=== PATIENT | female | born 1955 | race Caucasian/White ===

== ENCOUNTER 2020-09-15 08:22 | Outpatient (CLI) | payer MEDICARE, SELFPAY ==
--- NOTE | ~2020-09-15 | XR_ITS ---
EXAMINATION: XR chest 2V EXAM DATE: 09/15/2020 08:36 INDICATION: cough . TECHNIQUE: Frontal and lateral projections of the chest obtained and reviewed. There is no prior golden dy for comparison. FINDINGS: The lungs are clear. There are no pleural effusions. The cardiomediastinal silhouette is within normal limits. There is no pneumothorax suspected. Patient has diffuse idiopathic skeletal h yperostosis (DISH). IMPRESSION: No acute cardiopulmonary findings. Reviewed, dictated and finalized at location A. TRIC DOLLY OPERATOR
== END 2020-09-15 08:23 ==
PROVIDERS: PCP Family Medicine; Visit Provider Physician Assistant
DX: R05 Cough (principal)
CPT/HCPCS: 71046

== ENCOUNTER → 2020-11-23 10:45 | Outpatient (CLI) | payer MEDICARE, SELFPAY ==
--- NOTE | ~2020-11-23 | MM_ITS ---
EXAMINATION: MM screening [facility] BI w faby HISTORY: Screening TECHNIQUE: Craniocaudal and mediolateral oblique 3-D tomosynthesis images were obtained and synthetic 2-D images were generated. CAD analysis was submitted and interpreted. COMPARISON: No prior mammogram is available for comparison at this institution. BREAST PARENCHYMAL COMPOSITION: There are scattered areas of fibroglandular density. FINDINGS: There is no evidence of suspicious mass, calcification, or architectural distortion to sugg est malignancy in either breast. There has been no suspicious interval change. IMPRESSION: 1. No mammographic evidence of malignancy. 2. Recommend routine screening mammography in one year. BI-RADS Category 1: Negative Reviewed, dictated and finalized at location A. LEAF LAYER
--- NOTE | ~2020-11-23 | DEXA_ITS ---
Bone Density Report Name: Elvira Powers Age: 65 Sex: Female Ethnicity: White Date of : 1955 Indication: postmenopausal; screening for osteoporosis; Referring Provider: KAIDEN RAMIREZ Study: Bone densitometry was performed. Exam Date: November 23, 2020 Accession number: [id number] Bone Density: Region BMD T-score Z-score Classification AP Spine (L1-L4) 0.977 -0.6 1.3 Normal Femoral Neck (Left) 0.625 -2.0 -0.4 Osteopenia Total Hip (Left) 0.863 -0.7 0.7 Normal Femoral Neck (Right) 0.599 -2.3 -0.6 Osteopenia Total Hip (Right) 0.788 -1.3 0.1 Osteopenia Total Hip Mean 0.826 -1.0 0.4 Normal World Health Organization criteria for BMD impression classify patients as: Normal (T-score at or above -1.0), Osteopenia (T-score between -1.0 and -2.5), or Osteoporosis (T-score at or below -2.5). 10-year Fracture Risk(1): Major Osteoporotic Fracture 12% Hip Fracture 2.3% Reported Risk Factors: [place] (), Neck BMD=0.599, BMI=30.6 (1) FRAX(R) Version 3.08. Fracture probability calculated for an untreated patient. Fracture probability may be lower if the patient has received treatment. Clinical Information Provided by Patient: Has used the following medications: Vitamin D, Calcium, MTV Patient maximum height was 64.5 Menopause Age: 46 Onset of menses at age 11 Number of children 1 Impression: The patient has low bone mass, based on the Right Femoral Neck T-score. The patient has an estimated ten-year risk of hip fracture of 2.3% and an estimated ten-year risk of major fracture of 12%, based on the WHO FRAX algorithm. Discussion: BONE DENSITY IS LOW AT ONE OR MORE SKELETAL SITES. This patient's lowest T-score is low at one or more skeletal sites. It meets the World Health Organization's (WHO) criteria for ?low bone mass? (T-score between -1.0 and -2.5). The patient's 10-year risk of fracture as calculated by FRAX is less than the threshold where pharmacological therapy is recommended by the National Osteoporosis Foundation (NOF). However, all treatment decisions require clinical judgment and consideration of individual patient factors, including patient preferences, comorbidities, previous drug use, risk factors not captured in the FRAX model (e.g., frailty, falls, vitamin D deficiency, increased bone turnover, interval significant decline in bone density) and possible under or overestimation of fracture risk by FRAX. The patient should follow a healthful lifestyle (good nutrition with adequate calcium and vitamin D, and appropriate weight-bearing exercise). Follow-Up: Consider repeating this study in 2 to 3 years to reassess this patient's status, or sooner if there is some new clinical indication. Reported by: ROVERTO on 11/23/2020 11:33:00 AM.
== END ==
PROVIDERS: PCP Family Medicine; Visit Provider Family Medicine
DX: Z12.31 Encounter for screening mammogram for malignant neoplasm of breast (principal); Z78.0 Asymptomatic menopausal state; M85.852 Other specified disorders of bone density and structure, left thigh; M85.851 Other specified disorders of bone density and structure, right thigh
CPT/HCPCS: 77063; 77067; 77080

== ENCOUNTER 2020-12-24 08:39 | Outpatient (CLI) | payer MEDICARE, SELFPAY ==
--- NOTE | 2020-12-24 13:20 | WPDPFTINT ---
PFT Interpretation This is a pulmonary function test with pre and post-bronchodilator spirometry, plethysmography and diffusing capacity. The test was performed and results interpreted in accordance with the 2019 and 2005 ATS/ERS Task Force guidelines respectively using the Mario/Poltyler reference equations. Findings: Spirometry: the contour of the inspiratory expiratory flow tracing are normal. The pre bronchodilator FVC is 3.44 L, 119% predicted. The pre bronchodilator FEV1 is 2.64, 126% predicted. The FEV1: FVC ratio 77%. The post bronchodilator FVC is 3.48 L, representing 1% increase. The post bronchodilator FEV1 is 2.53 L, representing a 4% decrease. Plethysmography: The total lung capacity is 6.74 L, 139% predicted. Functional residual capacity is 3.08 L, 122% predicted. The residual volume is 3.05 L, 160% predicted. Diffusing capacity: The absolute diffusion capacity is 17.1, 79% predicted. The diffusing capacity corrected for alveolar volume is 3.86, 105% predicted. Impression: The spirometry is normal without evidence of an obstructive abnormality. There is no significant improvement after inhaling a single dose of albuterol. The Total lung capacity, functional residual capacity and residual volume are all increased. This is a nonspecific lung volume pattern. The diffusing capacity is normal. There are no prior studies for comparison
== END 2020-12-24 08:40 | disposition home or self-care (01) ==
PROVIDERS: PCP Family Medicine; Visit Provider Family Medicine
DX: R05 Cough (principal)
CPT/HCPCS: 94060; 94726; 94729

== ENCOUNTER 2022-01-28 09:46 | Outpatient (CLI) | payer MEDICARE, SELFPAY ==
--- NOTE | ~2022-01-28 | XR_ITS ---
XR chest 2V DATE: 01/28/2022 10:02 INDICATION: Cough TECHNIQUE: PA and lateral views COMPARISON: 09/15/2020 2 view chest FINDINGS: Normal heart size. There is suggestion of a coronary artery stent. Aortic arch calcificatio n. No hilar or mediastinal enlargement. No pulmonary infiltrate or consolidation, pleural effusion or pulmonary vascular congestion or pneumo thorax. Diffuse osteopenia There is mild levoscoliosis and prominent degenerative spurring of the thoracic spine. IMPRESSION: Probable coronary artery stents Aortic calcification No active cardiopulmonary disease Reviewed, dictated and finalized at location A.
== END 2022-01-28 09:47 | disposition home or self-care (01) ==
PROVIDERS: PCP Family Medicine; Referring Provider Internal Medicine Cardiovascular Disease; Visit Provider Family Medicine
DX: R05.9 Cough, unspecified (principal); I70.0 Atherosclerosis of aorta
CPT/HCPCS: 71046

== ENCOUNTER 2023-06-19 14:40 | Outpatient (CLI) | payer MEDICARE, SELFPAY ==
--- NOTE | ~2023-06-19 | XR_ITS ---
EXAMINATION:XR_[id number]_CR DATE: 06/19/2023 15:05 INDICATION: Neck pain TECHNIQUE: AP, lateral, and odontoid views of the cervical spine are provided. COMPARISON: None FINDINGS: There are 2 mm of anterolisthesis of C4 on C5. The odontoid process is intact. No fracture is identified. There is severe loss of intervertebral disc space height at C5-6 and C6-7. The vertebr al body heights are maintained. Small degenerative osteophytes project from the anterior endplates of multiple vertebral bodies. There is multilevel severe facet and uncovertebral joint osteoarthritis. Prevertebral soft tissues are normal. IMPRESSION: 1. Severe cervical spondylosis without acute findings. Reviewed, dictated and finalized at location A.
== END 2023-06-19 14:41 | disposition home or self-care (01) ==
PROVIDERS: PCP Family Medicine; Visit Provider Physician Assistant
DX: M47.892 Other spondylosis, cervical region (principal)
CPT/HCPCS: 72040

== ENCOUNTER → 2023-06-27 07:05 | Outpatient (CLI) | payer MEDICARE, SELFPAY ==
--- NOTE | ~2023-06-27 | MM_ITS ---
EXAMINATION: MM screening [facility] BI w faby HISTORY: Screening mammogram TECHNIQUE: Craniocaudal and mediolateral oblique 3-D tomosynthesis images were obtained and synthetic 2-D images were generated. CAD analysis was submitted and interpreted. COMPARISON: 11/23/2020 BREAST PARENCHYMAL COMPOSITION: There are scattered areas of fibroglandular density. FINDINGS: No suspicious mass, calcification, or architectural distortion are identified in either ritchie ast to suggest malignancy. There has been no suspicious interval change. IMPRESSION: 1. No mammographic evidence of malignancy. 2. Recommend routine screening mammography in one year. BI-RADS Category 1: Negative Reviewed, dictated and finalized at location A.
== END ==
PROVIDERS: PCP Family Medicine; Visit Provider Family Medicine
DX: Z12.31 Encounter for screening mammogram for malignant neoplasm of breast (principal)
CPT/HCPCS: 77063; 77067

== ENCOUNTER 2023-09-11 10:33 | Outpatient (CLI) | payer MEDICARE, SELFPAY ==
--- NOTE | ~2023-09-11 | XR_ITS ---
Lumbosacral Spine: AP and lateral views Clinical History: Pain Findings: The normal lordotic curve is maintained. No fracture seen. 3 mm anterolisthesis of L4 over L5 present. There is moderate facet arthropathy, worst at L4-L5 and L5-S1. The sacroiliac joints are normally outlined. Impression: Joint degenerative change, as above. 3 mm anterolisthesis of L4 over L5. Reviewed, dictated and finalized at location . P WINDER Impression: Joint degenerative change, as above. 3 mm anterolisthesis of L4 over L5.
== END 2023-09-11 10:34 | disposition home or self-care (01) ==
PROVIDERS: PCP Family Medicine; Visit Provider Family Medicine
DX: M53.86 Other specified dorsopathies, lumbar region (principal); M51.36 Other intervertebral disc degeneration, lumbar region
CPT/HCPCS: 72100

== ENCOUNTER 2024-02-01 10:26 | Outpatient (CLI) | payer MEDICARE, SELFPAY ==
--- NOTE | ~2024-02-01 | CT_ITS ---
CT Scan of the Chest without Contrast: Clinical Indication: Lung cancer screening, nicotine dependence Technique: Contiguous sections were acquired throughout the chest without intravenous contrast. Dose reduction technique was used on this scan by utilizing automated exposure control and iterative recon struction technique. The dose-length product (DLP) was 184.61 mGy-cm. Findings: There is no evidence of any significant mediastinal, hilar or axillary lymphadenopathy. Extensive cor onary artery calcifications are present. There is no evidence of pleural or pericardial effusion. The lungs are clear. No pulmonary nodules or infiltrates are noted. Images through the upper abdomen reveal no abnormalities. Impression: Lung RADS 1: Negative. 12 month follow-up screening CT advised. Reviewed, dictated and finalized at location . Impression: Lung RADS 1: Negative. 12 month follow-up screening CT advised.
== END 2024-02-01 10:27 | disposition home or self-care (01) ==
PROVIDERS: PCP Family Medicine; Visit Provider Family Medicine
DX: Z12.2 Encounter for screening for malignant neoplasm of respiratory organs (principal); F17.210 Nicotine dependence, cigarettes, uncomplicated
CPT/HCPCS: 71271

== ENCOUNTER 2024-07-02 07:15 | Outpatient (CLI) | payer MEDICARE, SELFPAY ==
--- NOTE | ~2024-07-02 | MM_ITS ---
EXAMINATION: MM screening [facility] BI w faby HISTORY: Screening TECHNIQUE: Craniocaudal and mediolateral oblique 3-D tomosynthesis images were obtained and synthetic 2-D images were generated. CAD analysis was submitted and interpreted. COMPARISON: Comparison to multiple prior studies sequentially, with oldest reviewed study dated 11/23. BREAST PARENCHYMAL COMPOSITION: There are scattered areas of fibroglandular density. FINDINGS: There is no evidence of suspicious mass, calcification, or architectural distortion to sugg est malignancy in either breast. There has been no suspicious interval change. IMPRESSION: 1. No mammographic evidence of malignancy. 2. Recommend routine screening mammography in one year. BI-RADS Category 1: Negative Reviewed, dictated and finalized at location B.
== END 2024-07-02 07:16 | disposition home or self-care (01) ==
PROVIDERS: PCP Family Medicine; Visit Provider Family Medicine
DX: Z12.31 Encounter for screening mammogram for malignant neoplasm of breast (principal)
CPT/HCPCS: 77063; 77067

== ENCOUNTER 2025-02-18 03:32 | Day surgery (SDC) | payer MEDICARE, SELFPAY ==
[2025-02-11 13:59] VITALS: BMI 30.3
--- NOTE | 2025-02-11 14:09 | PC.NURSE ---
Spoke with patient regarding medication Plavix. Patient verbalizes understanding that the last dose is to be taken on 02/11/2025 and the Endoscopist will instruct them when to restart after the procedure. Dr. Tillman is aware that her last dose will be today.
--- OUTSIDE RECORDS SUMMARY | 2025-02-18 03:35 | XMS_ITS | Clinical Summary ---
Author Organization [facility] [place] [address] [place] [address] [place] [phone] Care Team Providers Care Bleach Tester Name Role Phone Coni Hurley Primary Care Provid er Allergies Active Allergy Reactions Criticality Noted Date Comments Pioglitazone Redness Low 03/08/2021 Shellfish Derived Medications metFORMIN (GLUCOPHAGE) 1,000 mg tablet take 1 tablet by oral route 2 times every day with morning and evening meals 0 0 09/30/20 16 Active cetirizine (ZyrTEC) 10 mg tablet take 1 tablet by oral route every day 30 0 09/30/20 16 Active buPROPion XL (WELLBUTRIN XL) 150 mg 24 hr tablet Take 1 tablet (150 mg total) by mouth every morning 08/27/20 19 Active meloxicam (MOBIC) 15 mg tablet Take 1 tablet (15 mg total) by mouth daily 07/30/20 19 Active TRUEPLUS LANCETS 28 gauge misc 09/28/20 19 Active escitalopram (LEXAPRO) 10 mg tablet Take 10 mg by mouth daily 3 10/01/20 19 Active TRUE METRIX GLUCOSE TEST STRIP strip 09/28/20 19 Active aspirin 81 mg enteric coated tabletIndicati ons:cardiovasc ular disease Take 1 tablet (81 mg total) by mouth daily 30 tablet 11 01/28/20 21 Active atorvastatin (LIPITOR) 80 mg tabletIndicati ons:myocardial infarction prevention Take 1 tablet (80 mg total) by mouth nightly 30 tablet 11 01/27/20 21 Active dapagliflozin (FARXIGA) 5 mg tablet Take 5 mg by mouth daily Active clopidogreL (PLAVIX) 75 mg tablet 05/04/20 21 Active calcium carbonate-ila min D3 500 mg(1,250mg) -400 unit chewable tablet Take 1 tablet by mouth daily Active fish oil-dha-epa 1,200-144-216 mg capsule Take by mouth Activ e QUEtiapine (SEROquel) 25 mg tablet Take 1 tablet (25 mg total) by mouth nightly at bedtime. 01/01/20 22 Active glimepiride (AMARYL) 4 mg tablet TAKE 1 TABLET BY MOUTH ONCE DAILY IN THE MORNING WITH BREAKFAST 01/29/20 22 Active lisinopriL (PRINIVIL,ZEST RIL) 20 mg tablet Take 1 tablet (20 mg total) by mouth 2 (two) times a day 07/28/20 22 Active hydrALAZINE (APRESOLINE) 10 mg tablet 07/28/20 22 Active busPIRone (BUSPAR) 5 mg tablet 11/22/19 23 Active pen needle, diabetic 32 gauge x /32 needle USE DIRECTED DAILY 01/11/20 23 Active carvediloL (COREG) 12.5 mg tablet TAKE 1 TABLET BY MOUTH TWICE DAILY WITH MEALS 180 tablet 3 04/03/20 24 Active TOUJEO 300 unit/mL (1.5 mL) pen for injection INJECT 35 UNITS SUBCUTANEOUSLY AT BEDTIME 11/27/19 25 Active fluticasone propionate (FLONASE) 50 mcg/actuation nasal spray USE 1 SPRAY(S) IN EACH NOSTRIL ONCE DAILY 11/01/19 25 Active Levemir FlexPen 100 unit/mL (3 mL) pen for injection INJECT 15 UNITS SUBCUTANEOUSLY EVERY DAY AT BEDTIME 01/11/20 23 025 Discontin ued(Alter danny therapy) Active Problems Problem Noted Date Diagnosed Date KATLYN (obstructive sleep apnea) 03/02/2022 Coronary artery disease invo lving [place] coronary artery of [place] heart without angina pectoris 06/14/2021 Mixed hyperlipidemia 06/14/2021 Gastroenteritis, acute 04/05/2021 Cardiomyopathy, ischemic 03/08/2021 Status post coronary artery stent placement 02/27 STEMI (ST elevation myocardial infarction) 01/24 Diabetes mellitus Benign essential HTN Encounters Date Type Department Care Team Description 02/03/2025 2:15 PM CDT Office Visit [place] [facility] at [address] [place] [phone] Krish Faulkner MD Cardiomyopathy, ischemic (Primary Dx); Coronary artery disease involving [place] coronary artery of [place] heart without angina pectoris; KATLYN (obstructive sleep apnea); Benign essential HTN; Mixed hyperlipidemia; Atrial fibrillation, unspecified type (HCC) from Last 3 Months Immunizations Immunization Administration Dates Next Due Influenza, Quad, Adjuvantated, Intramuscular 06/2020 Influenza, Quadrivalent, Hig h Dose, Preservative Free, Intrr 11/13/2021 Influenza, Quadrivalent, Spl it, Preservative Free, Intramuscular 08/10/2015 Influenza, Trivalent, High D ose, Split, Preservative Free, Intramuscular 09/30/2019 Influenza, Trivalent, IM (MDV) 10/30/2012 Pneumococcal Conjugate PCV 13 10/05/2019 Pneumococcal Polysaccharide PPV23 10/30/1996 ZOSTER Recombinant 11/30/2020,08/07/2020 Surgical History Surgery Date Site/Laterality Comments KNEE ARTHROPLASTY Knee replacement Medical History Medical History Date Comments Diabetes mellitus (HCC) Hypertension Social History Tobacco Use Types Packs/Day Years Used Date Smoking Tobacco: Former Cigarettes Q uit: 03/08/1991 Smokeless Tobacco: Never Tobacco Cessation:Counseling Given: Not Answered Social Connection and Isolat ion Panel [NHANES] Answer Date Recorded In a typical week, how many times do you talk on the phone with family, friends, or neighbors? More than three times a week 01/27/2021 How often do you get togethe r with friends or relatives? More than three times a week 01/27/2021 How often do you attend chur ch or islam services? Never 01/27/2021 Do you belong to any clubs o r organizations such as evangelical groups, unions, fraternal or athletic groups, or school groups? No 01/27/2021 How often do you attend meet ings of the clubs or organizations you belong to? Never 01/27/2021 Are you , , di vorced, , never , or living with a partner? 01/27/2021 Overall Financial Resource Strain (CARDIA) Answe r Date Recorded How hard is it for you to pa y for the very basics like food, housing, medical care, and heating? Not hard at all 01/27/2021 Hunger Vital Sign Answer Date Recorded Within the past 12 months, y ou worried that your food would run out before you got the money to buy more. Never true 01/28/20 21 Within the past 12 months, t he food you bought just didn't last and you didn't have money to get more. Never true 01/27/2021 PRAPARE - Transportation Answer Date Re corded In the past 12 months, has l ack of transportation kept you from medical appointments or from getting medications? No 12/30 In the past 12 months, has l ack of transportation kept you from meetings, work, or from getting things needed for daily living? No 01/27/2021 Personal Safety Answer Date Recorded Have you ever been in or are you currently in a harmful physical or emotional relationship or is someone making you feel afraid or unsafe? 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 Gender Identity Not on file Sexual Orientation Not on file Obstetrics History Last Filed Vital Signs Vital Sign Reading Time Taken Comments Blood Pressure 165/84 02/03/2025 3:14 PM CDT Pulse 70 02/03/2025 3:14 PM CDT Temperature 37.3 C (99.2 F) 07/26/2023 5:38 PM CDT Respiratory Rate 18 02/03/2025 3:14 PM CDT Oxygen Saturation 97% 07/26/2023 5:38 PM CDT Inhaled Oxygen Concentration - - Weight 81.2 kg (179 lb) 02/03/2025 3:14 PM CDT Height 165.1 cm (5' 5 ) 02/03/2025 3:14 PM CDT Body Mass Index 29.79 02/03/2025 3:14 PM CDT Plan of Treatment Health Maintenance Due Date Last Done Comments Albumin Creatinine Ratio, Urine 1953 Breast Cancer Screening-Mammogram 1953 Colon Cancer Screening-Colonoscopy 1955 Depression Screening 1953 Hepatitis C Screening 1953 Osteoporosis Screening-Bone Density Scan 1953 Dilated Eye Exam 1953 Foot Exam 1953 DTaP/Tdap/Td Vaccine (1 - Tdap) 1964 Hepatitis B Screening 1971 Well Visit 65+ 2018 Hemoglobin A1C 07/29/2021 01/26/2021 Fall Risk Assessment 01/27/2022 01/27/2021 Lipid Panel 05/27/2024 05/27/2023, 03/10/2020, 01/24/2021, Additional history exists eGFR 06/16/2024 06/16/2023, 06/0 04/2021, 01/27/2021, Additional history exists Covid-19 Vaccine ( - 2023-2 5 season) 2024 10/13/2021, 03/09/2021, 01/12/2021 Pneumococcal vaccine 65+ (3 of 3 - PCV20 or PCV21) 10/05/2024 10/05/2019, 10/30/1996 Influenza Vaccine (Season Ended) 2025 11/13/2021, 08/07/2020, 09/30/2019, Additional history exists Zoster Vaccine Completed 11/30/2020, 08/07/2020 Medical Devices Implanted Type Area Flatbed Truck Driver Device Identifier Shelf Expiration Date Model / Serial / Lot Roadster [id number] Synergy 3mm 20mm 144cm Radiopaque 1 Access Port Inflation Lumen - [id number] Implanted:Qty: 1 on 01/24/2021 by Krish Faulkner MD at [facility] [employer] [id number] 300 / / [employer] [id number] Angio-Seal Evolution 6fr .035in Guidewire Bypass Tube Suture - [id number] Implanted:Qty: 1 on 01/24/2021 by Krish Faulkner MD at [facility] [employer] [id number] / / Procedures Procedure Name Priority Date/Time Associated Diagnosis Comments EGFR STAT 06/16/2023 7:28 AM CDT LIPID PANEL Routine 05/27/2023 8:00 AM CDT Mixed hyperlipidemia HEMOGLOBIN A1C Routine 01/26/2021 5:29 AM CDT from Last 3 Months or Most Recently Relevant to Health Maintenance Results * eGFR (06/16/2023 7:28 AM CDT) eGFR 97 mL/min/1. 73 m2 [facility]U (BEV) Comment: Interpretive Data Reference Interval Normal >/= 90 mL/min/1.73m2 Mildly decreased* 60 - 89 mL/min/1.73m2 Mildly to moderately decreased 45 - 59 mL/min/1.73m2 Moderately to severely decreased 30 - 44 mL/min/1.73m2 Severely decreased 15 - 29 mL/min/1.73m2 Kidney Failure < 15 mL/min/1.73m2 *Relative to young adult level Estimated glomerular filtration rate is determined by the 2020 CKD-EPI equation recommended by the National Kidney Foundation (A Unifying Approach to GFR Estimation: Recommendations of the NKF-ASK Task Force on Reassessing the Inclusion of Race in Diagnosing Kidney Disease, JASN 2020). The CKD-EPI equation should not be used for patients with unstable renal function and has not been validated in children and those over 70. Current interpretive data was last reviewed 2021. Blood 06/16/2023 7:28 AM CDT 06/16/2023 7:34 AM CDT us Orestes Dey MD LAB BLOOD ORDERABLE S Final Result RAGHU WU (UMPIRE) 1 [facility] Department of Laboratories [place], [place] [id number] * Lipid panel (05/27/2023 8:00 AM CDT) Cholesterol 86 30 - 199 mg/dL RAG[facility] WU (BEV) Comment: Interpretive Data Ages < or = 19 years Acceptable: <170 mg/dL Borderline high: 170-199 mg/dL High: >or= 200 mg/dL Ages > or = 20 years Desirable: <200 mg/dL Borderline high: 200-239 mg/dL High: >or= 240 mg/dL Literature References: 1. Expert Panel on Integrated Guidelines for Cardiovascular Health and Risk Reduction in Children and Adolescents. Pediatrics 2011;128:S213 2. NCEP Expert Panel. Circulation 2004;110:227 Current Interpretive Data was last revised on 2018. Triglycerides 41 <=149 mg/dL [facility] WU (BEV) Comment: Interpretive Data Ages < or = 9 years Acceptable: <75 mg/dL Borderline high: 75-99 mg/dL High: >or= 100 mg/dL Ages 10 to 20 years Acceptable: <90 mg/dL Borderline high: 90-129 mg/dL High: >or= 130 mg/dL Ages > or = 20 years Desirable: <150 mg/dL Borderline high: 150-199 mg/dL High: 200-499 mg/dL Very high: >or= 499 mg/dL Literature References: 1. Expert Panel on Integrated Guidelines for Cardiovascular Health and Risk Reduction in Children and Adolescents. Pediatrics 2011;128:S213 2. NCEP Expert Panel. Circulation 2004;110:227 Current Interpretive Data was last revised on 2018. HDL 54 >=40 mg/dL RAGHU H (BEV) Comment: Interpretive Data Ages < or = 19 years Acceptable: >45 mg/dL Borderline low: 40-45 mg/dL Low: <40 mg/dL Ages > or = 20 years Desirable: >or= 60 mg/dL Low: <40 mg/dL Literature References: 1. Expert Panel on Integrated Guidelines for Cardiovascular Health and Risk Reduction in Children and Adolescents. Pediatrics 2011;128:S213 2. NCEP Expert Panel. Circulation 2004;110:227 Current Interpretive Data was last revised on 2018. LDL, calculated 24 <=129 mg/dL RAG[facility] WU (BEV) Comment: Interpretive Data Ages < or = 19 years Acceptable: <110 mg/dL Borderline high: 110-129 mg/dL High: >or= 130 mg/dL Ages > or = 20 years Optimal: <100 mg/dL Near optimal: 100-129 mg/dL Borderline high: 130-159 mg/dL High: >160 mg/dL Literature References: 1. Expert Panel on Integrated Guidelines for Cardiovascular Health and Risk Reduction in Children and Adolescents. Pediatrics 2011;128:S213 2. NCEP Expert Panel. Circulation 2004;110:227 Current Interpretive Data was last revised on 2018. Non-HDL Cholesterol 32 mg/dL RAG[facility] WU (BEV) Comment: Interpretive Data Ages < or = 19 years Acceptable: <120 mg/dL Borderline high: 120-144 mg/dL High: >145 mg/dL Ages > or = 20 years When triglycerides are >200 mg/dL, Non-HDL cholesterol is a secondary target of therapy with treatment goals that are 30 mg/dL greater than the LDL cholesterol target. Literature References: 1. Expert Panel on Integrated Guidelines for Cardiovascular Health and Risk Reduction in Children and Adolescents. Pediatrics 2011;128:S213 2. NCEP Expert Panel. Circulation 2004;110:227 Current Interpretive Data was last revised on 2018. Chol/HDL ratio 2 AMARIS WU (BEV) Blood 05/27/2023 8:00 AM CDT 05/27/2023 8:42 AM CDT us Krish Faulkner MD LAB BLOOD ORDERABLES Final Resu lt R[facility]HU WU (UMPIRE) 1 [facility] [place] [address] * (ABNORMAL) Hemoglobin A1c (01/26/2021 5:29 AM CDT) Hgb A1C 7.5(H) 4.0 - 5.6 % [facility] ESCOTO Estimated Average Glucose 169 mg/dL RAG[facility] ESCOTO Comment: The ADA recommends reporting an estimated Average Glucose (eAG) with all Hemoglobin A1c results using the equation derived from a study of 507 normal and diabetic adults. Minority populations were underrepresented and children were not included. (Diabetes Care 31:2422-4351, 2008). The eAG is not equivalent to a fasting glucose. Blood specimen (specimen) 01/26/2021 5:29 AM CDT 01/26/2021 5:54 AM CDT us Jeancarlos Garrett MD LAB BLOOD ORDERABLES Fi nal Result RAGHU [id number] Department [place] [address] from Last 3 Months or Most Recently Relevant to Health Maintenance Insurance [employer] CHO[employer] MEDICARE PPO [employer] MEDICARE PPO [employer] MEDICARE PPO Advance Directives For more information, please contact: [phone] * Full Code (Latest Code Status on File) Date Activated Date Inactivated Comments 01/26/2021 10:31 PM 01/27/2021 6:40 PM * Full Code Date Activated Date Inactivated Comments 01/24/2021 2:15 PM 01/26/2021 3:54 PM * Full Code Date Activated Date Inactivated Comments 01/24/2021 2:15 PM 01/24/2021 2:15 PM Care Teams Bleach Tester Relationship Specialty Start Date End Date Coni Hurley PA [address] [place] [address] PCP - General Physician Timber Repairer 02/04/25
--- OUTSIDE RECORDS SUMMARY | 2025-02-18 03:35 | XMS_ITS | Referral Summary ---
Author Organization [facility] [address] Address [address] [place] [address] Care Team Providers Care Dragline Operator Name Role Phone Coni Hurley Primary Care Provid er Encounters Date Type Department Care Team Description 02/03/2025 2:15 PM CDT Office Visit [place] [facility]rom[facility] Worker at [address] [place] [phone] Krish Faulkner MD Cardiomyopathy, ischemic (Primary Dx); Coronary artery disease involving [place] coronary artery of [place] heart without angina pectoris; KATLYN (obstructive sleep apnea); Benign essential HTN; Mixed hyperlipidemia; Atrial fibrillation, unspecified type (HCC) from Last 3 Months Allergies Active Allergy Reactions Criticality Noted Date [...] Active pen needle, diabetic 32 gauge x 5/32 needle USE DIRECTED DAILY 01/11/20 23 Active [...] Active Problems Problem Noted Date Diagnosed Date KATLNY (obstructive sleep apnea) 03/02/2022 Coronary artery disease invo lving [place] coronary artery of [place] heart without angina pectoris 06/14/2021 Mixed hyperlipidemia 06/14/2021 Gastroenteritis, acute 04/05/2021 Cardiomyopathy, ischemic 03/08/2021 Status post coronary artery stent placement 02/27 STEMI (ST elevation myocardial infarction) 01/24 Diabetes mellitus Benign essential HTN Immunizations Immunization Administration Dates Next Due Influenza, Quad, Adjuvantated, Intramuscular 06/2020 Influenza, Quadrivalent, Hig h Dose, Preservative Free, Intrr 11/13/2021 Influenza, Quadrivalent, Spl it, Preservative Free, Intramuscular 08/10/2015 Influenza, Trivalent, High D ose, Split, Preservative Free, Intramuscular 09/30/2019 Influenza, Trivalent, IM (MDV) 10/30/2012 Pneumococcal Conjugate PCV 13 10/05/2019 Pneumococcal Polysaccharide PPV23 10/30/1996 ZOSTER Recombinant 11/30/2020,08/07/2020 Social History Tobacco Use Types Packs/Day Years [...] often do you attend chur ch or taoism services? 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 Gender Identity Not on file Sexual Orientation Not on file Last Filed Vital Signs Vital Sign Reading [...] 02/03/2025 3:14 PM CDT Plan of Treatment Not on file Medical Devices Implanted Type Area Ball Thread Machine Tender Device Identifier Shelf Expiration Date Model / Serial / Lot [employer] [id number] Synergy 3mm 20mm 144cm Radiopaque 1 Access Port Inflation Lumen - [id number] Implanted:Qty: 1 on 01/24/2021 by Kirsh Faulkner MD at [facility] [employer] [id number] 300 / / [employer] [id number] Angio-Seal Evolution 6fr .035in Guidewire Bypass Tube Suture - [id number] Implanted:Qty: 1 on 01/24/2021 by Krish Faulkner MD at [facility] [id number] / / Procedures Procedure Name Priority Date/Time Associated Diagnosis Comments EGFR STAT 06/16/2023 7:28 AM CDT LIPID PANEL Routine 05/27/2023 8:00 AM CDT Mixed hyperlipidemia HEMOGLOBIN A1C Routine 01/26/2021 5:29 AM CDT from Last 3 Months or Most Recently Relevant to Health Maintenance Results * eGFR (06/16/2023 7:28 AM CDT) eGFR 97 mL/min/1. 73 m2 [facility] WU (BELLS) Comment: Interpretive Data Reference Interval Normal >/= [...] BLOOD ORDERABLE S Final Result [facility]U (BELLS) 1 [facility] Department of [employer] [place], [place] [id number] * Lipid panel (05/27/2023 8:00 AM CDT) [...] on 2018. HDL 54 >=40 mg/dL [facility] (BEV) Comment: Interpretive Data Ages < [...] 2018. Non-HDL Cholesterol 32 mg/dL R[facility] WU (BELLS) Comment: Interpretive Data Ages < or = [...] on 2018. Chol/HDL ratio 2 AMARIS WU (BELLS) Blood 05/27/2023 8:00 AM CDT 05/27/2023 8:42 AM CDT us Krish Faulkner MD LAB BLOOD ORDERABLES Final Resu lt [facility] WU (BELLS) 1 [facility] Department [place] [address] * (ABNORMAL) Hemoglobin A1c (01/26/2021 5:29 AM CDT) Hgb A1C 7.5(H) 4.0 - 5.6 % [facility] ESCOTO Estimated Average Glucose 169 mg/dL R[facility] ESCOTO Comment: The ADA recommends reporting an estimated Average Glucose (eAG) with all Hemoglobin A1c results using the equation derived from a study of 507 normal and diabetic adults. Minority populations were underrepresented and children were not included. (Diabetes Care 31:3696-1907, 2008). The eAG is not equivalent to a fasting glucose. Blood specimen (specimen) 01/26/2021 5:29 AM CDT 01/26/2021 5:54 AM CDT Jeancarlos Garrett MD LAB [place] [id number] [place] Department of Laboratories [place] [phone] from Last 3 Months or Most Recently Relevant to Health Maintenance Insurance [employer] MEDICARE PPO [employer] MED[employer] PPO [employer] MED[employer] PPO Advance Directives For more information, please contact: [phone] * Full Code (Latest Code Status on File) Date Activated Date Inactivated Comments 01/26/2021 10:31 PM 01/27/2021 6:40 PM * Full Code Date Activated Date Inactivated Comments 01/24/2021 2:15 PM 01/26/2021 3:54 PM * Full Code Date Activated Date Inactivated Comments 01/24/2021 2:15 PM 01/24/2021 2:15 PM Care Teams Dragline Operator Relationship Specialty Start Date End Date Coni Hurley PA [address] [facility] [address] [place] [address] PCP - General Physician Filemaker Developer 02/04/25
--- OUTSIDE RECORDS SUMMARY | 2025-02-18 03:35 | XMS_ITS | Clinical Summary ---
Author Organization [facility] Address [address] [facility] [address] [place] [address] Phone Care Team Providers Care Bridge Opener Name Role Phone Albania Hanson MD Primary Care Provider [phone] Ruth Ray APRN, [employer] PIPING DESIGNER Unavailable Allergies Active Allergy Reactions Criticality Noted Date Comments Pioglitazone Hives Low 03/08/2021 Shellfish Allergy Anaphylaxis 09/13/2017 Medications Blood Glucose Monitoring Suppl (D-CARE GLUCOMETER) w/Device Kit 1 Device by Does not apply route daily. 1 Kit o 03/21/2017 Active FREESTYLE LANCETS Misc 1 Lancet by Does not apply route daily. 100 Lancet 5 03/21/2017 Active lisinopril (PRINIVIL, ZESTRIL) 20 MG Tablet TAKE ONE TABLET BY MOUTH ONCE DAILY 90 Tab 3 06/13/2017 Active metFORMIN (GLUCOPHAGE) 1000 MG Tablet TAKE ONE TABLET BY MOUTH TWICE DAILY 180 Tab 2 06/19/2017 Active Probiotic Product (PROBIOTIC PO) Take by mouth daily. Active cetirizine (ZYRTEC) 10 MG Tablet Take 10 mg by mouth daily. Active glimepiride (AMARYL) 2 MG Tablet TAKE ONE-HALF TABLET BY MOUTH ONCE DAILY IN THE MORNING 45 Tab 10/16/2017 Active buPROPion SR (WELLBUTRIN SR) 100 MG TABLET SR 12 HR TAKE ONE TABLET BY MOUTH TWICE DAILY 180 Tab 11/03/2017 Active Glucose Blood (ACCU-CHEK SMARTVIEW) Strip Test once daily. DX E11.9 50 Strip 6 03/25/2018 Active verapamil (COVERA HS) 180 MG CAPSULE SR 24 HR TAKE ONE CAPSULE BY MOUTH ONCE DAILY 90 Cap 05/30/2018 Active pantoprazole (PROTONIX) 40 MG Tablet Delayed Response Take 1 Tablet by mouth daily. 30 Tablet 12/21/2024 Active Active Problems Problem Noted Date Diagnosed Date DM2 (diabetes mellitus, type 2) HTN (hypertension) Depressed IBS (irritable bowel syndrome) Encounters Date Type Department Care Team Description 12/21/2024 8:38 AM CARTOON ANIMATOR - 12/21/2024 10:27 AM CARTOON ANIMATOR Emergency [facility] Emergency [address] [place] [address] Robert Caceres MD Rectal bleeding Discharge Disposition: Discharged to home or Selfcare 12/21/2024 Travel from Last 3 Months Immunizations Immunization Administration Dates Next Due Influenza Vaccine greater than 3 yrs 10/30/2012 Influenza Vaccine, Quadrivalent, PF 08/10/2015 Pneumococcal Vaccine Adult - 23 Valent 7 Tetanus Toxoid, Unspecified Formulation 08/30/20 07 Family History Medical History Relation Name Comments Lung Cancer Father Cancer Mother Blood? Emphysema Sister Relation Name Status Comments Father Mother Sister Social History Tobacco Use Types Packs/Day Years Used Date Smoking Tobacco: Former Cigarettes 0.5 25 1 11/05/1991 - 09/05/2017 Smokeless Tobacco: Never Tobacco Cessation:Counseling Given: Not Answered Alcohol Use Standard Drinks/Week Comments No 0 (1 standard drink = 0.6 oz pur e alcohol) Quit in 1996. Sexually Active Control Partners Comments Not Currently Comments No Sex and Gender Information Value Date Recorded Sex Assigned at Not on file Legal Sex Female 11:43 PM CDT Gender Identity Not on file Sexual Orientation Not on file Last Filed Vital Signs Vital Sign Reading Time Taken Comments Blood Pressure 140/74 12/21/2024 10:26 AM CARTOON ANIMATOR Pulse 64 12/21/2024 10:26 AM CARTOON ANIMATOR Temperature 36.6 C (97.8 F) 12/21/2024 8:49 AM CARTOON ANIMATOR Respiratory Rate 18 12/21/2024 10:26 AM CARTOON ANIMATOR Oxygen Saturation 98% 12/21/2024 10:26 AM CARTOON ANIMATOR Inhaled Oxygen Concentration - - Weight 82.6 kg (182 lb) 12/21/2024 8:49 AM CARTOON ANIMATOR Height 165.1 cm (5' 5 ) 12/21/2024 8:49 AM CARTOON ANIMATOR Body Mass Index 30.29 12/21/2024 8:49 AM CARTOON ANIMATOR Plan of Treatment Health Maintenance Due Date Last Done Comments DEXA Bone Density 1953 Diabetes: Eye Exam 1953 Diabetes: Foot Exam 1955 Hepatitis C Virus (HCV) Screening 1955 TdaP Immunization 1953 Cologuard 2003 Immunochemical Fecal Occult Blood 2003 Respiratory Syncytial Virus (RSV) Immunization (Adult) (1 - Risk 60-74 years 1-dose series) 2013 Mammogram 05/03/2018 05/03/2017 Colonoscopy 10/16/2018 10/16/2017 Colorectal Cancer Screening 10/16/2018 Diabetes: Hemoglobin A1c 07/29/2021 021, 07/30/2019, 03/17/2017, Additional history exists Influenza Immunization (#1) 06/30/202409/29, 11/13/2021, 08/07/2020, Additional history exists SARS-COV-2 Immunization ( season) 2024 10/13/2021, 03/09/2021, 01/12/2021 Pneumococcal Immunization (50+ years) (3 of 3 - PCV20 or PCV21) 10/05/2024 10/05/2019, 10/30/1996 Diabetes: Nephropathy Screening 12/21/2025 12/21/2024, 07/30/2019, 07/30/2019, Additional history exists 10/16/2017 Pneumococcal Immunization Combined Discontinued 10/05/2019, 10/30/1996 Zoster Immunization Completed 11/30/2020, 0 Hepatitis B Immunization Aged Out No longer eligible based on patient's age to complete this topic Meningococcal Immunization (ACWY) Aged Out No longer eligible based on patient's age to complete this topic Rotavirus Immunization Aged Out No lo nger eligible based on patient's age to complete this topic Procedures Procedure Name Priority Date/Time Associated Diagnosis Comments GOLD TOP TUBE STAT 12/21/2024 8:55 AM CARTOON ANIMATOR BLUE TOP TUBE STAT 12/21/2024 8:55 AM CARTOON ANIMATOR CBC WITH AUTO DIFFERENTIAL STAT 12/21/2024 8:55 AM CARTOON ANIMATOR EXTRA TUBES STAT 12/21/2024 8:55 AM CARTOON ANIMATOR CMP (COMPREHENSIVE METABOLIC PANEL) STAT 12/21/2024 8:55 AM CARTOON ANIMATOR COMPLETE BLOOD COUNT (CBC) WITH DIFF STAT 12/21/2024 8:55 AM CARTOON ANIMATOR HEMOGLOBIN A1C W/ ESTIMATED GLUCOSE Routine 07/30/2019 10:56 AM CDT Mixed hyperlipidemia Uncontrolled type 2 diabetes mellitus with hypoglycemia, unspecified hypoglycemia coma status (HCC) GREG SCREENING BILATERAL DIGITAL W CAD Routine 05/03/2017 8:39 AM CDT Screening mammogram, encounter for from Last 3 Months or Most Recently Relevant to Health Maintenance Results * Gold Top Tube (12/21/2024 8:55 AM CARTOON ANIMATOR) Blood No Phlebotomy Charged / Unknown 12/21/2024 8:55 AM CARTOON ANIMATOR 12/21/2024 9:15 AM CARTOON ANIMATOR Robert Caceres MD CHEMISTRY ORDERABLES Final Result Performing Organization Address [facility] Co de Phone Number [facility] [address] [place] [address] * Blue Top Tube (12/21/2024 8:55 AM CARTOON ANIMATOR) Blood No Phlebotomy Charged / Unknown 12/21/2024 8:55 AM CARTOON ANIMATOR 12/21/2024 9:15 AM CARTOON ANIMATOR Robert Caceres MD HEMATOLOGY ORDERABLES Shira l Result Performing Organization Address City/[facility]/ZIP Co de Phone Number [facility] [address] [place] [address] * CBC with Auto Differential (12/21/2024 8:55 AM CARTOON ANIMATOR) [facility] WBC 6.52 4.00 - 12.00 10(3)/mcL 12/21/2024 9:22 AM [facility] RBC 4.19 3.80 - 5.30 10(6)/[facility] 12/21/2024 9:22 AM [facility] HEMOGLOBIN (HGB) 12.8 12.0 - 15.8 g/dL 12/21/2024 9:22 AM [facility] HEMATOCRIT (HCT) 37.5 36.0 - 47.0 % 12/21/2024 9:22 AM [facility] MCV 89.5 82.0 - 96.0 fL 12/21/2024 9:22 AM [facility] MCH 30.5 26.0 - 34.0 pg 12/21/2024 9:22 AM [facility] MCHC 34.1 31.0 - 36.0 g/dL 12/21/2024 9:22 AM [facility] PLATELET COUNT 218 140 - 440 10(3)/[facility] 12/21/2024 9:22 AM [facility] RDW 12.3 11.8 - 15.5 % 12/21/2024 9:22 AM [facility] MPV 10.7 9.7 - 12.4 fL 12/21/2024 9:22 AM [facility] NEUTROPHILS 70.8 47.0 - 73.0 % 12/21/2024 9:22 AM [facility] LYMPHOCYTES 22.2 18.0 - 42.0 % 12/21/2024 9:22 AM [facility] MONOCYTES 5.1 4.0 - 12.0 % 12/21/2024 9:22 AM [facility] EOSINOPHILS 1.4 0.0 - 5.0 % 12/21/2024 9:22 AM [facility] BASOPHILS 0.5 0.0 - 1.0 % 12/21/2024 9:22 AM [facility] ABSOLUTE NEUTROPHILS 4.62 1.60 - 7.70 10(3)/[facility] 12/21/2024 9:22 AM CARTOON ANIMATOR [facility] ABSOLUTE LYMPHOCYTES 1.45 1.30 - 3.20 10(3)/[facility] 12/21/2024 9:22 AM CARTOON ANIMATOR [facility] ABSOLUTE MONOCYTES 0.33 0.20 - 1.00 10(3)/[facility] 12/21/2024 9:22 AM CARTOON ANIMATOR [facility] ABSOLUTE EOSINOPHIL 0.09 0.00 - 0.40 10(3)/[facility] 12/21/2024 9:22 AM [facility] ABSOLUTE BASOPHILS 0.03 0.00 - 0.10 10(3)/[facility] 12/21/2024 9:22 AM [facility] NRBC PER 100 WBC 0 12/21/19 9:22 AM [facility] Blood Venipuncture / Unknown 12/21/2024 8:55 AM CARTOON ANIMATOR 12/21/2024 9:14 AM CARTOON ANIMATOR us Robert Caceres MD HEMATOLOGY ORDERABLES Shira l Result [facility] [address] [place] [address] * (ABNORMAL) Comprehensive Metabolic Panel (Cmp) [id number] (12/21/2024 8:55 AM CARTOON ANIMATOR) SODIUM 137 136 - 145 mmol/L 12/21/2024 9:45 AM [facility] POTASSIUM 4.2 3.5 - 5.1 mmol/L 12/21/2024 9:45 AM [facility] CHLORIDE 100 98 - 107 mmol/L 12/21/2024 9:45 AM [facility] CO2, VENOUS 29 22 - 30 mmol/L 12/21/2024 9:45 AM [facility] ANION GAP 12.2 <18.0 mmol/L 12/21/2024 9:45 AM [facility] GLUCOSE 142(H) 70 - 99 mg/dL 12/21/2024 9:45 AM [facility] BUN 16 10 - 20 mg/dL 12/21/2024 9:45 AM [facility] CREATININE, BLOOD 0.76 0.60 - 1.00 mg/dL 12/21/2024 9:45 AM [facility] BUN/CREATININE RATIO 21(H) 12 - 20 ratio 12/21/2024 9:45 AM [facility] TOTAL PROTEIN 7.3 6.0 - 8.0 g/dL 12/21/2024 9:45 AM [facility] ALBUMIN 4.3 3.5 - 5.0 g/dL 12/21/2024 9:45 AM [facility] A/G RATIO 1.4 1.0 - 2.2 12/21/2024 9:45 AM [facility] CALCIUM 9.3 8.7 - 10.5 mg/dL 12/21/2024 9:45 AM [facility] T BILI 0.4 0.2 - 1.2 mg/dL 12/21/2024 9:45 AM [facility] SGOT (AST) 23 <43 U/L 12/21/2024 9:45 AM [facility] SGPT (ALT) 22 <56 U/L 12/21/2024 9:45 AM [facility] ALKALINE PHOSPHATASE 66 40 - 150 U/L 12/21/2024 9:45 AM [facility] GFR, ESTIMATED >60 >=60 12/21/2024 9:45 AM [facility] Comment: Creatinine Clearance is the preferred criteria for selecting drug dose adjustments in renally impaired patients. The GFR is provided as additional pertinent clinical information. GFR is reported in mL/min/1.73 sq m. Calculation based on the Chronic Kidney Disease Epidemiology Collaboration (CKD- EPI) equation refit without adjustment for race. GFR, EST. >60 >=60 025 9:45 AM [facility] GFR, EST. NONAFRICAN >60 >=60 12/21/2024 9:45 AM CARTOON ANIMATOR [facility] Blood Venipuncture / Unknown 12/21/2024 8:55 AM CARTOON ANIMATOR 12/21/2024 9:14 AM CARTOON ANIMATOR Robert Caceres MD CHEMISTRY ORDERABLES Final Result Performing Organization Address City/[facility] Co de Phone Number [facility] [address] [place] [address] * (ABNORMAL) HEMOGLOBIN A1C W/ ESTIMATED GLUCOSE (07/30/2019 10:56 AM CDT) HGB-A1C 8.3(H) 4.0 - 6.0 % 07/30/2019 12:12 PM CDT [facility] Est Average Glucose 191.5 mg/dL 07/30/2019 12:12 PM CDT [facility] Blood specimen (specimen) Venipuncture / Unknown 07/30/2019 10:56 AM CDT 07/30/2019 10:56 AM CDT Narrative [facility] - 07/30/2019 12:12 PM CDT HEMOGLOBIN A1C: DIABETIC PATIENTS: WELL-CONTROLLED: 6.2 - 7.0 INTERMEDIATE WELL-CONTROLLED: 7.0 - 9.0 POORLY-CONTROLLED: >9.0 us Albania Hanson MD CHEMISTRY ORDERABLES Final Result Performing Organization Address City/[facility] Co de Phone Number [facility] [address] [place] [address] * GREG SCREENING BILATERAL DIGITAL W CAD (05/03/2017 8:39 AM CDT) Anatomical Region Laterality Modality breast Bilateral Mammography 05/03/2017 8:23 AM CDT Narrative 05/04/2017 7:45 AM CDT - GREG SCREENING BILATERAL DIGITAL W CAD BILATERAL DIGITAL SCREENING MAMMOGRAM WITH CAD WITH MEDIOLATERAL OBLIQUE CRANIOCAUDAL: 05/03/2017 The study was acquired using digital technology and interpreted from soft copy. Current study was also evaluated with ICAD version 7.2. CLINICAL: Routine screening. Patient has no complaints. No personal history of cancer. No family history of breast cancer. COMPARISONS: Comparison is made to exams dated: 08/17/2015, 09/02/2010, and 04/26/2005 [facility]. BREAST TISSUE:There are scattered fibroglandular densities in both breasts. FINDINGS: There is a possible asymmetry in the right breast middle depth lateral region seen on the craniocaudal view only. No other significant masses, calcifications, or other findings are seen in either breast. IMPRESSION: BI-RAD 0 ADDITIONAL IMAGING EVALUATION NEEDED The possible asymmetry in the right breast is indeterminate. Additional views with possible ultrasound are recommended. An immediate follow-up is recommended. The patient has been or will be contacted. Carmen art/delilah:05/03/2017 09:36:45 Reporting Specialist: Milgaros EVERETT(R)(Alli), [facility] letter sent: Additional Imaging Reading location: [facility] BI-RADS: 0 Additional Imaging Evaluation Needed Procedure Note Carmen Toussaint MD - 05/04/2017 - GREG SCREENING BILATERAL DIGITAL W CAD BILATERAL DIGITAL SCREENING MAMMOGRAM WITH CAD WITH MEDIOLATERAL OBLIQUE CRANIOCAUDAL: 05/03/2017 The study was acquired using digital technology and interpreted from soft copy. Current study was also evaluated with ICAD version 7.2. CLINICAL: Routine screening. Patient has no complaints. No personal history of cancer. No family history of breast cancer. COMPARISONS: Comparison is made to exams dated: 08/17/2015, 09/02/2010, and 04/26/2005 [facility]. BREAST TISSUE:There are scattered fibroglandular densities in both breasts. FINDINGS: There is a possible asymmetry in the right breast middle depth lateral region seen on the craniocaudal view only. No other significant masses, calcifications, or other findings are seen in either breast. IMPRESSION: BI-RAD 0 ADDITIONAL IMAGING EVALUATION NEEDED The possible asymmetry in the right breast is indeterminate. Additional views with possible ultrasound are recommended. An immediate follow-up is recommended. The patient has been or will be contacted. Carmen art/delilah:05/03/2017 09:36:45 Reporting Specialist: Milagros Garland RT(R)(M), [facility] letter sent: Additional Imaging Reading location: [facility] BI-RADS: 0 Additional Imaging Evaluation Needed us Kwasi Baylee Velarded DO IMG MAMMO ORDERABLES Final Resul t from Last 3 Months or Most Recently Relevant to Health Maintenance Insurance MEDICARE C HUMANA Care Teams Bridge Opener Relationship Specialty Start Date End Date Albania Hanson MD [address] [place] [address] PCP - General Family Medicine 12/09/19 Ruth Ray APRN, [employer] PIPING DESIGNER [address] [place] [address] Advanced Practice Nurse 12/09/19
[2025-02-18 08:41] VITALS: BP 160/85; PULSE 64; RESP 22; TEMP 36.6; O2SAT 94
[2025-02-18] MEDS: LACTATED RINGERS 1,000 ML 150 ML IV CONT (08:53)
[2025-02-18 08:55] LABS: Glucose Point of Care 104 mg/dl (65-105)
--- NOTE | 2025-02-18 09:04 | P.PNAN_ITS ---
Anes - Initial Pre Proc Eval Procedure: Operation Date: 02/18/25 10:00 Proposed Procedures p Colonoscopy - Candelario Tillman MD Date/Time: 02/18/25 09:04 Surgeon: Candelario Tillman MD Pre Op Diagnosis: Melena Patient Data Age: 69 Gender: F Height: 1.65 m Weight: 79.9 kg Last Vital Signs Temp 36.6 C 02/18/25 08:41 Pulse 64 02/18/25 08:41 Resp 22 H 02/18/25 08:41 BP 160/85 H 02/18/25 08:41 Pulse Ox 94 02/18/25 08:41 O2 Del Method Room Air 02/18/25 08:41 Allergies Allergy/AdvReac Type Severity Reaction Status Date / Time dapagliflozin (From [facility]) Allergy Severe Vomiting Verified 02/11/25 13:58 [facility]itazone ([facility] Allergy Swelling Verified 02/18/25 08:39 of Lip/Tongue/Throat shellfish derived AdvReac Intermediate Hives Verified 02/11/25 13:58 Home Medications ?Medication ?Instructions ?Recorded ?Confirmed ?Type cholecalciferol (vitamin D3) 25 1,000 unit PO DAILY 09/16/19 02/18/25 History mcg (1,000 unit) tablet (Vitamin D3) blood-glucose meter (True Metrix #1 ea 12/28/21 02/11/25 Rx Glucose Meter) carvedilol 3.125 mg tablet 3.125 mg PO Q12H #180 tabs 07/28/22 02/18/25 Rx pen needle, diabetic, safety 32 #100 ea 01/10/23 01/30/25 Rx gauge x 5/32 lancets 33 gauge (TRUEplus Lancets) #200 ea 03/09/23 02/11/25 Rx pen needle, diabetic 32 gauge x #300 ea 09/03/23 01/30/25 Rx 5/32 (1st Tier Unifine Pentips) pen needle, diabetic 32 gauge x #300 ea 09/15/23 01/30/25 Rx 5/16 (Comfort Touch Pen Needle) aspirin 81 mg tablet,delayed 81 mg PO DAILY 01/24/24 02/18/25 History release Spiriva with HandiHaler 18 mcg and See Rx Instructions .Route 03/26/24 02/18/25 Rx inhalation capsules (tiotropium .COMPLEX #90 caps bromide) azelastine 137 mcg (0.1 %) nasal See Rx Instructions .Route 04/04/24 02/18/25 Rx spray .COMPLEX #30 mL blood sugar diagnostic (True #300 ea 07/03/24 02/11/25 Rx Metrix Glucose Test Strip) fluticasone fur. 100 mcg-umeclid 1 inh inhalation DAILY 07/09/24 02/18/25 H istory 62.5 mcg-vilant 25 mcg inhalat.powder (Trelegy Ellipta) atorvastatin 80 mg tablet See Rx Instructions .Route 09/16/24 02/18/25 Rx .COMPLEX #90 tabs clopidogrel 75 mg tablet See Rx Instructions .Route 10/09/24 02/18/25 Rx .COMPLEX #90 tabs calcitonin (salmon) 200 1 spray intranasal (ALT) DAILY 10/28/24 02/18/25 Rx unit/actuation nasal spray #3.7 mL fluticasone propionate 50 1 spray intranasal DAILY #16 grams 11/01/24 02/18/25 Rx mcg/actuation nasal spray,suspension hydralazine 10 mg tablet 20 mg (2 x 10 mg) PO BID #360 tabs 11/22/24 02/18/25 Rx insulin glargine U-300 conc 300 30 unit (0.1 mL) subcut QHS 3 12/20/24 02/18/25 Rx unit/mL (1.5 mL) subcutaneous pen months #9 mL (Toujeo SoloStar U-300 Insulin) metformin 1,000 mg tablet See Rx Instructions .Route 01/08/25 02/18/25 Rx .COMPLEX #180 tabs pantoprazole 40 mg tablet,delayed 40 mg PO DAILY 01/13/25 02/18/25 History release buspirone 5 mg tablet See Rx Instructions .Route 01/22/25 02/18/25 Rx .COMPLEX #270 tabs lisinopril 20 mg tablet 20 mg PO BID #200 tabs 01/22/25 02/18/25 Rx blood-glucose sensor (FreeStyle #1 ea 01/30/25 02/11/25 Rx Devan 3 Sensor device) quetiapine 25 mg tablet See Rx Instructions .Route 02/17/25 02/18/25 Rx .COMPLEX #180 tabs Laboratory Tests 02/18/25 08:48 POC Capillary Glucose 104 mg/dl (65-105) Patient hx anesthesia problems: none Family hx anesthesia problems: none Results Review: All pre-operative results and documents have been reviewed as part of the pre- operative evaluation. [facility] Past Medical History Medical History Bronchitis Rhinosinusitis Anxiety Acute pain Acute bronchitis Subacute maxillary sinusitis Cough Hyperlipidemia SEDRICK (generalized anxiety disorder) ST elevation (STEMI) myocardial infarction involving left main coronary artery (~12/2020) AMI (acute myocardial infarction) Strain of left trapezius muscle Psychophysiologic insomnia Cervical spondylosis Arm pain, left Cardiac murmur Chronic cough Chest congestion Benign essential HTN Chronic insomnia Allergies Hx of smoking Postmenopausal Tobacco abuse SEDRICK (generalized anxiety disorder) Tobacco dependence BP (high blood pressure) Type 2 diabetes mellitus without complications Surgical History Surgical History S/P total knee arthroplasty S/P carpal tunnel release Family History Family History Other Diabetes mellitus Heart disease Hypertension Social History Social History Social History: Smoking packs per day: 0.5 Smoking cigarettes per day: 10.0 Years smoked: 25 Smoking pack-years: 12.50 Smoking status: Former smoker Tobacco type: cigarettes Second hand tobacco smoke exposure: No Smoking end date: 07/17/94 Alcohol intake: never Substance use: current Substance use type: marijuana Other substance usage details: gummies Last use: Pt just uses gummies. Do You Feel Safe in your Home?: Yes Lack of Transportation: No Lack of Food: Never True Current Housing: I Have Housing Concerned About Future Housing: No Difficulty Paying Gas/Electric Bills: No Difficulty Paying for Meds: No Currently Unemployed: YES Education: Decline to Answer Difficulty w/ Childcare or Family Care: No Living arrangements: with family Occupation/Education: retired Gender identity (if verbalized by the patient): Female Sexual Orientation (if Verbalized by the Patient): Straight or Heterosexual Spiritual care concerns: No Anes - Eval Final PreProcedure Day of Procedure 02/18/25 09:04 Patient weight: overweight Heart: regular rate and rhythm Lungs: clear to auscultation Airway: Mallampati scale class II Neurological: alert and oriented Last oral intake: >/= 8 hours ASA classification: III Emergent: no Anesthetic plan: proceed Anesthesia type and monitoring: general GIVS and standard monitoring Results Review: All pre-operative results and documents have been reviewed as part of the pre- operative evaluation. Informed Consent: The patient's anesthetic plan and its attendant risks and benefits were discussed with the patient/family/POA. Questions were solicited and answers provided to the satisfaction of the patient/family/POA.
--- NOTE | 2025-02-18 09:58 | PM.IMHP ---
H&P: HPI History of Present Illness Date/Time: 02/18/25 09:58 Chief Complaint: History of colon polyps Narrative: The patient has a history of colonic polyps, the last colonoscopy was approximately 30 years ago. Review of Systems Review of Systems: All systems reviewed & are unremarkable except as noted in HPI and below PMFSH Past Medical History Medical History Bronchitis Rhinosinusitis Anxiety Acute pain Acute bronchitis Subacute maxillary sinusitis Cough Hyperlipidemia SEDRICK (generalized anxiety disorder) ST elevation (STEMI) myocardial infarction involving left main coronary artery (~12/2020) AMI (acute myocardial infarction) Strain of left trapezius muscle Psychophysiologic insomnia Cervical spondylosis Arm pain, left Cardiac murmur Chronic cough Chest congestion Benign essential HTN Chronic insomnia Allergies Hx of smoking Postmenopausal Tobacco abuse SEDRICK (generalized anxiety disorder) Tobacco dependence BP (high blood pressure) Type 2 diabetes mellitus without complications Surgical History Surgical History S/P total knee arthroplasty S/P carpal tunnel release Family History Family History Other Diabetes mellitus Heart disease Hypertension Social History Social History Social History: Smoking packs per day: 0.5 Smoking cigarettes per day: 10.0 Years smoked: 25 Smoking pack-years: 12.50 Smoking status: Former smoker Tobacco type: cigarettes Second hand tobacco smoke exposure: No Smoking end date: 07/17/94 Alcohol intake: never Substance use: current Substance use type: marijuana Other substance usage details: gummies Last use: Pt just uses gummies. Do You Feel Safe in your Home?: Yes Lack of Transportation: No Lack of Food: Never True Current Housing: I Have Housing Concerned About Future Housing: No Difficulty Paying Gas/Electric Bills: No Difficulty Paying for Meds: No Currently Unemployed: YES Education: Decline to Answer Difficulty w/ Childcare or Family Care: No Living arrangements: with family Occupation/Education: retired Gender identity (if verbalized by the patient): Female Sexual Orientation (if Verbalized by the Patient): Straight or Heterosexual Spiritual care concerns: No Meds Home Medications and Allergies Home Medications ?Medication ?Instructions ?Recorded ?Confirmed ?Type cholecalciferol (vitamin D3) 25 1,000 unit PO DAILY 09/16/19 02/18/25 History mcg (1,000 unit) tablet (Vitamin D3) blood-glucose meter (True Metrix #1 ea 12/28/21 02/11/25 Rx Glucose Meter) carvedilol 3.125 mg tablet 3.125 mg PO Q12H #180 tabs 07/28/22 02/18/25 Rx pen needle, diabetic, safety 32 #100 ea 01/10/23 01/30/25 Rx gauge x 5/32 lancets 33 gauge (TRUEplus Lancets) #200 ea 03/09/23 02/11/25 Rx pen needle, diabetic 32 gauge x #300 ea 09/03/23 01/30/25 Rx 5/32 (1st Tier Unifine Pentips) pen needle, diabetic 32 gauge x #300 ea 09/15/23 01/30/25 Rx 5/16 (Comfort Touch Pen Needle) aspirin 81 mg tablet,delayed 81 mg PO DAILY 01/24/24 02/18/25 History release Spiriva with HandiHaler 18 mcg and See Rx Instructions .Route 03/26/24 02/18/25 Rx inhalation capsules (tiotropium .COMPLEX #90 caps bromide) azelastine 137 mcg (0.1 %) nasal See Rx Instructions .Route 04/04/24 02/18/25 Rx spray .COMPLEX #30 mL blood sugar diagnostic (True #300 ea 07/03/24 02/11/25 Rx Metrix Glucose Test Strip) fluticasone fur. 100 mcg-umeclid 1 inh inhalation DAILY 07/09/24 02/18/25 History 62.5 mcg-vilant 25 mcg inhalat.powder (Trelegy Ellipta) atorvastatin 80 mg tablet See Rx Instructions .Route 09/16/24 02/18/25 Rx .COMPLEX #90 tabs clopidogrel 75 mg tablet See Rx Instructions .Route 10/09/24 02/18/25 Rx .COMPLEX #90 tabs calcitonin (salmon) 200 1 spray intranasal (ALT) DAILY 10/28/24 02/18/25 Rx unit/actuation nasal spray #3.7 mL fluticasone propionate 50 1 spray intranasal DAILY #16 grams 11/01/24 02/18/25 Rx mcg/actuation nasal spray,suspension hydralazine 10 mg tablet 20 mg (2 x 10 mg) PO BID #360 tabs 11/22/24 02/18/25 Rx insulin glargine U-300 conc 300 30 unit (0.1 mL) subcut QHS 3 12/20/24 02/18/25 Rx unit/mL (1.5 mL) subcutaneous pen months #9 mL (Toujeo SoloStar U-300 Insulin) metformin 1,000 mg tablet See Rx Instructions .Route 01/08/25 02/18/25 Rx .COMPLEX #180 tabs pantoprazole 40 mg tablet,delayed 40 mg PO DAILY 01/13/25 02/18/25 History release buspirone 5 mg tablet See Rx Instructions .Route 01/22/25 02/18/25 Rx .COMPLEX #270 tabs lisinopril 20 mg tablet 20 mg PO BID #200 tabs 01/22/25 02/18/25 Rx blood-glucose sensor (FreeStyle #1 ea 01/30/25 02/11/25 Rx Devan 3 Sensor device) quetiapine 25 mg tablet See Rx Instructions .Route 02/17/25 02/18/25 Rx .COMPLEX #180 tabs Allergies Allergy/AdvReac Type Severity Reaction Status Date / Time dapagliflozin (From [employer] Allergy Severe Vomiting Verified 02/11/25 13:58 pioglitazone (From Act[employer]) Allergy Swelling Verified 02/18/25 08:39 of Lip/Tongue/Throat shellfish derived AdvReac Intermediate Hives Verified 02/11/25 13:58 Vital Signs Vital Signs - 24 hr 02/18/25 08:41 Temperature 97.8 F Pulse Rate 64 Respiratory Rate 22 H Blood Pressure 160/85 H Pulse Oximetry 94 Oxygen Delivery Room Air Exam Const: General: cooperative and healthy appearing Resp: Effort & Inspection: normal respiratory effort and able to speak in complete sentences Auscultation: clear to auscultation bilaterally Cardio: Rate: regular rate Rhythm: regular rhythm GI: Inspection: normal to inspection GI Palp: No No hepatosplenomegaly present Auscultation: normal bowel sounds Rectal Exam: deferred Skin: General skin exam: normal color Psych: Appearance: grossly normal Mental Status: mental status grossly normal Assessment and Plan Assessment and plan (1) History of colonic polyps: Code(s): Z86.0100 - Personal history of colon polyps, unspecified Status: Acute Assessment and Plan: The patient is deemed a good candidate for the procedure. Consent signed. Will proceed.
[2025-02-18 10:28] VITALS: BP 121/72; PULSE 69; RESP 18; O2SAT 97
[2025-02-18 10:38] VITALS: BP 190/81; PULSE 62; RESP 18; O2SAT 97
[2025-02-18 10:38] LABS: Glucose Point of Care 89 mg/dl (65-105)
[2025-02-18 10:49] VITALS: BP 201/82; PULSE 60; RESP 18; O2SAT 96
== END 2025-02-18 11:06 | disposition home or self-care (01) ==
PROVIDERS: PCP Family Medicine; Referring Provider Physician Assistant; Visit Provider Internal Medicine Gastroenterology
PROC: 0DJD8ZZ Inspection of Lower Intestinal Tract, Via Natural or Artificial Opening Endoscopic (ICD-10-PCS; CPT 45378; principal; 2025-02-18 10:00)
DX: Z12.11 Encounter for screening for malignant neoplasm of colon (principal); D12.3 Benign neoplasm of transverse colon; K57.30 Diverticulosis of large intestine without perforation or abscess without bleeding; E78.5 Hyperlipidemia, unspecified; I10 Essential (primary) hypertension; E11.9 Type 2 diabetes mellitus without complications; F51.04 Psychophysiologic insomnia; R01.1 Cardiac murmur, unspecified; F41.9 Anxiety disorder, unspecified; I25.2 Old myocardial infarction; M43.02 Spondylolysis, cervical region; R05.3 Chronic cough; F12.90 Cannabis use, unspecified, uncomplicated; Z79.82 Long term (current) use of aspirin; Z79.51 Long term (current) use of inhaled steroids; Z79.02 Long term (current) use of antithrombotics/antiplatelets; Z79.4 Long term (current) use of insulin; Z79.84 Long term (current) use of oral hypoglycemic drugs; Z98.890 Other specified postprocedural states; Z87.891 Personal history of nicotine dependence; Z82.49 Family history of ischemic heart disease and other diseases of the circulatory system
CPT/HCPCS: 45385; 82948; 88305; J2003; J2704; J7120

== ENCOUNTER 2025-07-15 14:47 | Outpatient (CLI) | payer MEDICARE, SELFPAY ==
--- NOTE | ~2025-07-15 | CT_ITS ---
EXAMINATION:CT lung screening DATE: 07/15/2025 15:02 INDICATION: Personal history of nicotine dependence. TECHNIQUE: Computed tomography (CT) of the chest was performed without intravenous contrast. Automated exposure control and iterative reconstruction technique were employed. The dose-length product (DLP) was 190.98 mGy-cm. COMPARISON: Chest CT 02/01/2024 FINDINGS: There is mild emphysema. There is mild atelectasis bilaterally. There is a stable 3 mm nodule in left upper lobe. There is chronic mild peripheral septal thickening in the lungs. No pleural effusion. The heart size is normal. There are coronary artery calcifications. No pericardial effusion. There are bridging endplate osteophytes at multiple levels in the spine, consistent with diffuse idiopathic skeletal hyperostosis (DISH). IMPRESSION: 1. Lung-RADS category 2: Benign appearance or behavior. Continue annual screening with noncontrast low-dose chest CT in 12 months. Reviewed, dictated and finalized at location E. IMPRESSION: 1. Lung-RADS category 2: Benign appearance or behavior. Continue annual screeni ng with noncontrast low-dose chest CT in 12 months.
--- OUTSIDE RECORDS SUMMARY | 2025-07-15 16:18 | XMS_ITS | Clinical Summary ---
Author Organization [facility] [address] [place] [address] [place] [id number] Care Team Providers Care House Parent Name Role Phone Coni Hurley Primary Care Provid er Allergies Active Allergy Reactions Criticality Noted Date Comments Pioglitazone Redness Low 03/08/2021 Shellfish Derived Medications metFORMIN (GLUCOPHAGE) 1,000 mg tablet take 1 tablet by oral route 2 times every day with morning and evening meals 0 0 6 Active cetirizine (ZyrTEC) 10 mg tablet take 1 tablet by oral route every day 30 0 6 Active buPROPion XL (WELLBUTRIN XL) 150 mg 24 hr tablet Take 1 tablet (150 mg total) by mouth every morning 9 Active meloxicam (MOBIC) 15 mg tablet Take 1 tablet (15 mg total) by mouth daily 9 Active TRUEPLUS LANCETS 28 gauge misc 9 Active escitalopram (LEXAPRO) 10 mg tablet Take 10 mg by mouth daily 3 9 Active TRUE METRIX GLUCOSE TEST STRIP strip 9 Active aspirin 81 mg enteric coated tabletIndicati ons:cardiovasc ular disease Take 1 tablet (81 mg total) by mouth daily 30 tablet 11 1 Active atorvastatin (LIPITOR) 80 mg tabletIndicati ons:myocardial infarction prevention Take 1 tablet (80 mg total) by mouth nightly 30 tablet 11 1 Active dapagliflozin (FARXIGA) 5 mg tablet Take 5 mg by mouth daily Active clopidogreL (PLAVIX) 75 mg tablet 1 Active calcium carbonate-ila min D3 500 mg(1,250mg) -400 unit chewable tablet Take 1 tablet by mouth daily Active fish oil-dha-epa 1,200-144-216 mg capsule Take by mouth Activ e QUEtiapine (SEROquel) 25 mg tablet Take 1 tablet (25 mg total) by mouth nightly at bedtime. 2 Active glimepiride (AMARYL) 4 mg tablet TAKE 1 TABLET BY MOUTH ONCE DAILY IN THE MORNING WITH BREAKFAST 2 Active lisinopriL (PRINIVIL,ZEST RIL) 20 mg tablet Take 1 tablet (20 mg total) by mouth 2 (two) times a day 2 Active hydrALAZINE (APRESOLINE) 10 mg tablet 2 Active busPIRone (BUSPAR) 5 mg tablet 3 Active pen needle, diabetic 32 gauge x needle USE DIRECTED DAILY 3 Active TOUJEO 300 unit/mL (1.5 mL) pen for injection INJECT 35 UNITS SUBCUTANEOUSLY AT BEDTIME 5 Active fluticasone propionate (FLONASE) 50 mcg/actuation nasal spray USE 1 SPRAY(S) IN EACH NOSTRIL ONCE DAILY 5 Active carvediloL (COREG) 12.5 mg tablet Take 1 tablet (12.5 mg total) by mouth 2 (two) times a day with meals 180 tablet 2 5 Active Active Problems Problem Noted Date Diagnosed Date KATLYN (obstructive sleep apnea) 03/02/2022 Coronary artery disease invo [place]ving [place] coronary artery of [place] heart without angina pectoris 06/14/2021 Mixed hyperlipidemia 06/14/2021 Gastroenteritis, acute 04/05/2021 Cardiomyopathy, ischemic 03/08/2021 Status post coronary artery stent placement 02/27 STEMI (ST elevation myocardial infarction) 01/24 Diabetes mellitus Benign essential HTN Encounters Date Type Department Care Team Description 04/15/2025 8:45 AM CDT Office Visit [facility] Sleep Medicine at [address] [place] [address] Sarah Mcallister MD Obstructive sleep apnea (Primary Dx); Hypersomnia; Overweight from Last 3 Months Immunizations Immunization Administration [...] Cessation:Counseling Given: Not Answered Social Connection and Isolation Panel Answer Date Recorded In a typical week, how many times do you talk on the phone with family, friends, or neighbors? More than three times a week 01/27/2021 How often do you get togethe r with friends or relatives? More than three times a week 01/27/2021 How often do you attend chur ch or jain services? 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] Assessment 01/27/2022 01/27/2021 Lipid Panel 05/27/2024 05/27/2023, 03/3 10/2020, 01/24/2021, Additional history exists eGFR 06/16/2024 06/16/2023, 06/0 04/2021, 01/27/2021, Additional history exists Pneumococcal vaccine 65+ (3 of 3 - PCV20 or PCV21) 10/05/2024 10/05/2019, 10/30/1996 Covid-19 Vaccine (4 - 2024-2 6 season) 2025 10/13/2021, 03/09/2021, 01/12/2021 Influenza Vaccine (#1) 2025 , 08/07/2020, 09/30/2019, Additional history exists Zoster Vaccine Completed 11/30/2020, 08/07/2020 Medical Devices Implanted Type Area Clinical Athletic Instructor Device Identifier Shelf Expiration Date Model / Serial / Lot Devtoo [id number] Synergy 3mm 20mm 144cm Radiopaque 1 Access Port Inflation Lumen - [id number] Implanted:Qty: 1 on 01/24/2021 by Krish Faulkner MD at [facility] Devtoo [id number] / / [employer]ig [employer] [id number] Angio-Seal Evolution 6fr .035in Guidewire Bypass Tube Suture - [id number] Implanted:Qty: 1 on 01/24/2021 by Krish Faulkner MD at [facility] [employer] [id number] / / Procedures Procedure Name Priority Date/Time Associated Diagnosis Comments EGFR STAT 06/16/2023 7:28 AM CDT LIPID PANEL Routine 05/27/2023 8:00 AM CDT Mixed hyperlipidemia HEMOGLOBIN A1C Routine 01/26/2021 5:29 AM CDT from Last 3 Months or Most Recently Relevant to Health Maintenance Results * eGFR (06/16/2023 7:28 AM CDT) Pathologist [facility] eGFR 97 mL/min/1. 73 m2 RAGHU WU [...] BLOOD ORDERABLE S Final Result RAGHU WU (PROSPECT) 1 [facility] Department of Laboratories [place] [id number] * Lipid panel (05/27/2023 8:00 AM CDT) Cholesterol 86 30 - 199 mg/dL RAGHU WU (PROSPECT) Comment: Interpretive Data Ages < or = [...] 8:00 AM CDT 05/27/2023 8:42 AM CDT Krish Faulkner MD LAB BLOOD ORDERABLES Final Resu lt Performing Organization Address City/[facility]/ZIP Co de Phone Number RAGHU WU (BEV) 1 [facility] Department [place] [address] * (ABNORMAL) Hemoglobin A1c (01/26/2021 5:29 AM CDT) Hgb A1C 7.5(H) 4.0 - 5.6 % RAGHU ESCOTO Estimated Average Glucose 169 mg/dL RAGHU ESCOTO Comment: The ADA recommends reporting an estimated Average Glucose (eAG) with all Hemoglobin A1c results using the equation derived from a study of 507 normal and diabetic adults. Minority populations were underrepresented and children were not included. (Diabetes Care 31:7232-9437, 2008). The eAG is not equivalent to a fasting glucose. Blood specimen (specimen) 01/26/2021 5:29 AM CDT 01/26/2021 5:54 AM CDT Jeancarlos Garrett MD LAB BLOOD ORDERABLES Fi nal Result Performing Organization Address [facility] Co de Phone Number RAGHU [phone] Department [place] [address] from Last 3 Months or Most Recently Relevant to Health Maintenance Insurance [employer] CHOICE MEDICARE PPO [employer] MEDICARE PPO [employer] CHOICE MEDICARE PPO Advance Directives For more information, please contact: [phone] * Full Code (Latest Code Status on File) Date Activated Date Inactivated Comments 01/26/2021 10:31 PM 01/27/2021 6:40 PM * Full Code Date Activated Date Inactivated Comments 01/24/2021 2:15 PM 01/26/2021 3:54 PM * Full Code Date Activated Date Inactivated Comments 01/24/2021 2:15 PM 01/24/2021 2:15 PM Care Teams House Parent Relationship Specialty Start Date End Date Coni Hurley PA [address] [facility] [address] [place] [phone] PCP - General Physician Furniture Maker 02/04/25
== END 2025-07-15 14:48 | disposition home or self-care (01) ==
PROVIDERS: PCP Family Medicine; Visit Provider Student in an Organized Health Care Education/Training Program
DX: Z12.2 Encounter for screening for malignant neoplasm of respiratory organs (principal); Z87.891 Personal history of nicotine dependence
CPT/HCPCS: 71271

== ENCOUNTER 2025-09-18 08:46 | Outpatient (CLI) | payer MEDICARE, SELFPAY ==
--- NOTE | ~2025-09-18 | DEXA_ITS ---
Bone Density Report Name: JACKIE RICO Age: 70 Sex: Female Ethnicity: White Date of : 1955 Indication: osteopenia; monitoring treatment; height loss; asthma or emphysema; secondary osteoporosis; Referring Provider: SOLO COX Study: Bone densitometry was performed. Exam Date: September 18, 2025 Accession number: [id number] Bone Density: Region BMD T-score Z-score Classification AP Spine(L1-L4) 0.913 -1.2 1.0 Osteopenia Femoral Neck (Left) 0.605 -2.2 -0.3 Osteopenia Total Hip (Left) 0.824 -1.0 0.7 Normal Femoral Neck (Right) 0.539 -2.8 -0.9 Osteoporosis Total Hip (Right) 0.746 -1.6 0.0 Osteopenia Total Hip Mean 0.785 -1.3 0.4 Osteopenia World Health Organization criteria for BMD impression classify patients as: Normal (T-score at or above -1.0), Osteopenia (T-score between -1.0 and -2.5), or Osteoporosis (T-score at or below -2.5). 10-year Fracture Risk: FRAX not reported because: Some T-score for Spine Total or Hip Total or Femoral Neck at or below -2.5 Treated for osteoporosis Previous Exams: -- Region Exam Age BMD T-score BMD Change BMD Change Date g/cm2 vs Baseline vs Previous -- AP Spine (L1-L4) 09/18/2025 70 0.913 -1.2 -6.5%* -6.5%* 11/23/2020 65 0.977 -0.6 Total Hip(Left) 09/18/2025 70 0.824 -1.0 -4.4%# -4.4%# 11/23/2020 65 0.863 -0.7 Total Hip(Right) 09/18/2025 70 0.746 -1.6 -5.4%# -5.4%# 11/23/2020 65 0.788 -1.3 -- *Denotes significance at 95% confidence level, LSC for AP Spine = 0.022 g/cm2, LSC for Total Hip = 0.027 g/cm2 # Denotes dissimilar scan types or analysis methods Clinical Information Provided by Patient: Smokes Has secondary osteoporosis Is being treated for osteoporosis Has used the following medications: Vitamin D Has the following medical conditions: Asthma or Emphysema Patient maximum height was 65 Menopause Age: 46 No regular weight bearing exercise Onset of menses at age 11 Number of children 1 Impression: The patient has osteoporosis, based on the Right Femoral Neck T-score. The patient has risk factors, including: smoking. The BMD for the AP Spine (L1-L4) decreased, changing by -6.5% since the last DXA exam. Discussion: SIGNIFICANT BONE LOSS OBSERVED. Adherence to therapy (including calcium and vitamin D intake) should be assessed. If compliance is not a factor, review management and exclusion of secondary causes of bone loss. It is important to ask patients whether they are taking their medications and to encourage continued and appropriate compliance with their osteoporosis therapies to reduce fracture risk. It is also important to review their risk factors and encourage appropriate calcium and vitamin D intakes, exercise, fall prevention and other lifestyle measures. Follow-Up: Consider a repeat BMD and Vertebral Fracture Assessment (VFA) exam in 2 years or sooner if medically necessary, to reassess this patient's status. Reported by: WALESKA on 09/18/2025 9:12:00 AM. Reviewed, dictated and finalized at location A.
== END 2025-09-18 08:47 | disposition home or self-care (01) ==
LOC: MICIMG 08:48
PROVIDERS: PCP Family Medicine; Visit Provider Physician Assistant
DX: Z78.0 Asymptomatic menopausal state (principal); M85.88 Other specified disorders of bone density and structure, other site; M85.852 Other specified disorders of bone density and structure, left thigh; M85.851 Other specified disorders of bone density and structure, right thigh; M81.0 Age-related osteoporosis without current pathological fracture
CPT/HCPCS: 77080